=== PATIENT | male | born 1955 | race Caucasian/White ===

== ENCOUNTER 2018-12-14 08:14 | Inpatient (IN) ==
[2018-12-14] MEDS ORDERED: IOPAMIDOL 100 ML BOTTLE IV ONE (08:15)
[2018-12-14] MEDS ORDERED: KETOROLAC 30 MG/ML VIAL IV ONE (09:16)
[2018-12-14] MEDS ORDERED: ONDANSETRON 4 MG/2 ML VIAL IV ONE (09:16)
[2018-12-14] MEDS ORDERED: 0.9 % SODIUM CHLORIDE 2,000 ML IV ONE (09:16)
[2018-12-14] MEDS ORDERED: HYDROmorphone 2 MG/ML VIAL IV PRN (09:16)
--- NOTE | 2018-12-14 09:21 | Emergency Department Note ---
Abdominal Pain HPI - General Chief Complaint: Abdominal Pain Stated Complaint: Abdominal pain Time Seen by Provider: 12/14/18 09:16 Source: patient Mode of arrival: ambulatory Limitations: no limitations - History of Present Illness HPI Narrative: 63-year-old male with epigastric/right upper quadrant/right flank pain started 5-6 days ago. Denies trauma. It became much worse last night so he came in. He did vomit once this morning. Denies fever but has had chills. Still has gallbladder and appendix - Related Data Home Medications Medication Instructions Recorded Confirmed No Known Home Meds 12/14/18 12/14/18 Allergies Allergy/AdvReac Type Severity Reaction Status Date / Time No Known Drug Allergies Allergy Verified 12/14/18 08:18 Review of Systems All systems ED: reviewed and negative except as stated. Abdominal Pain PMH - Past Medical History Attestation: Yes: The following information was validated with the patient. Medical history: Reports: arthritis (Knee), asthma Surgical history ED: Reports: orthopedic, other (Knees), other (Myringotomy) - Social History Smoking status: Current every day smoker Alcohol use: Reports: Heavy Physical Exam No acute distress resting laying flat. Normocephalic atraumatic. Conjunctive are clear sclerae nonicteric. No nasal discharge but occasional sniffle of congestion. Oropharynx pink and moist. Posterior pharynx clear. Neck is supple without lymphadenopathy or thyromegaly. No carotid bruit. heart is regular rate and rhythm no murmur appreciated. Lungs clear to auscultation bilaterally without rales or significant rhonchi but he does have end expiratory wheeze throughout all lung tello. He is moving air well however. Abdomen is soft tender from the epigastrium to the right upper quadrant and over to the right flank. I do not see any distention no history of peritoneal signs or guarding. No pedal edema. +2 radial pulse. Alert oriented Limitations: no limitations Course Vital Signs Temperature 97.9 F 12/14/18 08:14 Pulse Rate 94 H 12/14/18 08:14 Respiratory Rate 20 12/14/18 08:14 Blood Pressure 147/96 12/14/18 08:14 Pulse Oximetry (%) 99 12/14/18 08:14 Temperature 97.9 F 12/14/18 08:14 Pulse Rate 86 12/14/18 11:56 Respiratory Rate 20 12/14/18 08:14 Blood Pressure 133/84 12/14/18 11:45 Pulse Oximetry (%) 95 12/14/18 11:56 Abdominal Pain - Lab Data Result diagrams: 12/14/18 08:34 12/14/18 08:34 Lab Results 12/14/18 12/14/18 12/14/18 Range/Units 08:29 08:34 08:34 WBC 22.5 H (4.5-11.0) K/mcL RBC 5.31 (4.50-5.90) M/mcL Hgb 16.2 (13.5-16.5) g/dL Hct 50.2 (41.0-55.0) % MCV 94.6 (80.0-100.0) fL MCH 30.6 (26.0-34.0) pg MCHC 32.3 (31.0-36.0) g/dL RDW 14.9 H (11.5-14.5) % Plt Count 366 (140-440) K/mcL MPV 8.5 (7.4-10.4) fL Gran % 84.3 H (38.0-78.0) % Lymph % (Auto) 6.5 L (15.5-49.0) % [place] % (Auto) 8.8 (1.0-12.0) % Eos % (Auto) 0.2 (0.0-7.0) % Baso % (Auto) 0.2 (0.0-2.0) % Gran # 18.9 H (1.8-8.0) K/mcL Lymph # (Auto) 1.5 (1.5-4.8) K/mcL [place] # (Auto) 2.0 H (0.1-0.9) K/mcL Eos # (Auto) 0.1 (0.0-0.7) K/mcL Baso # (Auto) 0 (0.0-0.3) K/mcL VBG Lactic Acid (0.5-2.0) mmol/L Sodium 137 (133-145) mmol/L Potassium 3.8 (3.3-5.1) mmol/L Chloride 94 L (96-108) mmol/L Carbon Dioxide 25 (22-30) mmol/L Anion Gap 18.0 H (8-16) BUN 14 (8-23) mg/dl Creatinine 1.4 H (0.7-1.2) mg/dl GFR Calculation 53 Glucose 124 H (70-105) mg/dL Calcium 9.5 (8.6-10.4) mg/dl Total Bilirubin 1.2 H (0.0-1.0) mg/dL AST 17 (0-37) U/l ALT 10 (0-40) U/l Alkaline Phosphatase 170 H (39-117) U/L Total Protein 8.4 (5.9-8.4) gm/dL Albumin 3.9 (3.2-5.2) gm/dL Globulin 4.5 H (2.2-3.7) gm/dL Albumin/Globulin Ratio 0.9 L (1.0-2.3) Amylase (28-100) U/L Lipase (7-60) U/L Urine Color Yellow Urine Appearance Clear Urine pH 5.0 (5.0-9.0) Ur Specific [place] 1.027 (1.000-1.035) Urine Protein >=500 A (NEG) mg/dL Urine Glucose (UA) Negative (NEG) mg/dL Urine Ketones 80 A (NEG) mg/dL Urine Occult Blood >=1.0 A (<0.03) mg/dL Urine Nitrate Neg (NEG) Urine Bilirubin Neg (NEG) mg/dL Urine Urobilinogen 2.0 A (NEG) mg/dL Ur Leukocyte Esterase Neg (NEG) /uL Urine RBC 15 H (0-1) /hpf Urine WBC < 1 (0-4) /hpf Ur Squamous Epith Cells < 1 (0-4) /hpf Urine Bacteria 0 (0) /hpf Hyaline Casts 3 H (0-2) /lpf Urine Mucus Many A (0) /hpf Urine Yeast (Budding) Few A (0) /hpf Ur Culture Indicated? Yes 12/14/18 12/14/18 Range/Units 09:20 09:44 WBC (4.5-11.0) K/mcL RBC (4.50-5.90) M/mcL Hgb (13.5-16.5) g/dL Hct (41.0-55.0) % MCV (80.0-100.0) fL MCH (26.0-34.0) pg MCHC (31.0-36.0) g/dL RDW (11.5-14.5) % Plt Count (140-440) K/mcL MPV (7.4-10.4) fL Gran % (38.0-78.0) % Lymph % (Auto) (15.5-49.0) % [place] % (Auto) (1.0-12.0) % Eos % (Auto) (0.0-7.0) % Baso % (Auto) (0.0-2.0) % Gran # (1.8-8.0) K/mcL Lymph # (Auto) (1.5-4.8) K/mcL [place] # (Auto) (0.1-0.9) K/mcL Eos # (Auto) (0.0-0.7) K/mcL Baso # (Auto) (0.0-0.3) K/mcL VBG Lactic Acid 2.5 H (0.5-2.0) mmol/L Sodium (133-145) mmol/L Potassium (3.3-5.1) mmol/L Chloride (96-108) mmol/L Carbon Dioxide (22-30) mmol/L Anion Gap (8-16) BUN (8-23) mg/dl Creatinine (0.7-1.2) mg/dl GFR Calculation Glucose (70-105) mg/dL Calcium (8.6-10.4) mg/dl Total Bilirubin (0.0-1.0) mg/dL AST (0-37) U/l ALT (0-40) U/l Alkaline Phosphatase (39-117) U/L Total Protein (5.9-8.4) gm/dL Albumin (3.2-5.2) gm/dL Globulin (2.2-3.7) gm/dL Albumin/Globulin Ratio (1.0-2.3) Amylase 37 (28-100) U/L Lipase 15 (7-60) U/L Urine Color Urine Appearance Urine pH (5.0-9.0) Ur Specific [place] (1.000-1.035) Urine Protein (NEG) mg/dL Urine Glucose (UA) (NEG) mg/dL Urine Ketones (NEG) mg/dL Urine Occult Blood (<0.03) mg/dL Urine Nitrate (NEG) Urine Bilirubin (NEG) mg/dL Urine Urobilinogen (NEG) mg/dL Ur Leukocyte Esterase (NEG) /uL Urine RBC (0-1) /hpf Urine WBC (0-4) /hpf Ur Squamous Epith Cells (0-4) /hpf Urine Bacteria (0) /hpf Hyaline Casts (0-2) /lpf Urine Mucus (0) /hpf Urine Yeast (Budding) (0) /hpf Ur Culture Indicated? - Radiology Data Radiology results reviewed: Yes I reviewed the patient's radiology results. CT scan the abdomen pelvis shows wall thickening of the gallbladder and duodenal inflammation per Dr. Hawthorne's report Ultrasound gallbladder pulmonary report showed thickened gallbladder wall with sludge-cholecystitis without lithiasis Disposition Pt seen by MOTORSPOR[employer] TECHNICIAN/PA only: No Clinical Impression: Nery cystitis, Cholecystitis, Duodenitis, Acute kidney injury, Dehydration COPD (chronic obstructive pulmonary disease) Qualifiers: COPD type: unspecified COPD Qualified Code(s): J44.9 - Chronic obstructive pulmonary disease, unspecified UTI (urinary tract infection) Qualifiers: Urinary tract infection type: acute cystitis Hematuria presence: with hematuria Qualified Code(s): N30.01 - Acute cystitis with hematuria Summary: Patient is seen and evaluated test and studies ordered. Pain is treated with Dilaudid and Toradol. Zofran given along with IV fluid. Start DuoNeb for mild COPD Laboratory shows urinary tract infection with yeast. Start Rocephin and f luconazole. Leukocytosis noted so we will get blood cultures as well CT scan shows likely cholecystitis so ultrasound was ordered. Question of duodenitis so Protonix started Ultrasound confirms cholecystitis without lithiasis. Discussed case with Dr. Raji Sutton who agreed to admit the patient. I will write holding orders. Gallbladder removal planned for tomorrow morning Disposition: Xfer As Inpt ([facility]) Condition: Fair
[2018-12-14] MEDS ORDERED: IPRATROPIUM/ALBUTEROL 3 ML AMPUL.NEB NEB ONE (09:24)
[2018-12-14 09:41] LABS: Basophils # (Auto) 0 K/mcL (0.0-0.3); Basophils % (Auto) 0.2 % (0.0-2.0); Eosinophils # (Auto) 0.1 K/mcL (0.0-0.7); Eosinophils % (Auto) 0.2 % (0.0-7.0); Granulocytes % (Auto) 84.3 % (38.0-78.0); Lymphocytes # (Auto) 1.5 K/mcL (1.5-4.8); Lymphocytes % (Auto) 6.5 % (15.5-49.0); Mean Cell Volume 94.6 fL (80.0-100.0); Mean Corpuscular HGB Conc 32.3 g/dL (31.0-36.0); Monocytes % (Auto) 8.8 % (1.0-12.0); Platelet Count 366 K/mcL (140-440); RBC 5.31 M/mcL (4.50-5.90); Red Cell Distribution Width 14.9 % (11.5-14.5)
[2018-12-14 09:48] LABS: Appearance,Urine CLEAR; Bacteria,Urine 0 /hpf (0); Bilirubin,Urine NEG (NEG); Color,Urine YELLOW; Glucose,Urine (UA) NEGATIVE (NEG); Leukocyte Esterase,Urine NEG /uL (NEG); Mucus,Urine MANY /hpf (0); Protein,Urine >=500 mg/dL (NEG); Specific Gravity,Urine 1.027 (1.000-1.035); Urine Blood >=1.0 mg/dL (<0.03); Urine Budding Yeast FEW /hpf (0); Urine Hyaline Cast 3 /lpf (0-2); Urine RBC 15 /hpf (0-1); Urine Squamous Epithelial Cell < 1 /hpf (0-4); Urine WBC < 1 /hpf (0-4)
[2018-12-14 10:05] LABS: Amylase 37 U/L (28-100); Lipase 15 U/L (7-60)
[2018-12-14 10:09] LABS: ALT/SGPT 10 U/l (0-40); Albumin 3.9 gm/dL (3.2-5.2); Albumin/Globulin Ratio 0.9 (1.0-2.3); Alkaline Phosphatase 170 U/L (39-117); Blood Urea Nitrogen 14 mg/dl (8-23)
[2018-12-14] MEDS ORDERED: FLUCONAZOLE 150 MG TABLET PO ONE (10:54)
[2018-12-14] MEDS ORDERED: cefTRIAXone 1 GM VIAL IV ONE (10:54)
[2018-12-14] MEDS ORDERED: PANTOPRAZOLE 40 MG VIAL IV ONE (10:55)
[2018-12-14] MEDS ORDERED: ONDANSETRON 4 MG/2 ML VIAL IV PRN ×2 (12:29→16:02)
--- NOTE | 2018-12-14 13:52 | Cat Scan Report ---
CLINICAL INFORMATION: Right upper quadrant pain, right flank pain and fever COMPARISON: None. TECHNIQUE: Following oral contrast and the injection of intravenous contrast the patient was scanned during the portal venous phase from the diaphragm through the symphysis pubis. Delayed excretory phase images of the upper abdomen were acquired. Sagittal and coronal reformats were created.. The radiation exposure was limited using dose reduction technology. FINDINGS: There is mild atelectasis or inflammation in the posterior basal segments of both lower lobes, right worse than left. The liver is normal in size and homogeneous. There is prominence of the portal triads. The gallbladder wall is thickened and there is inflammation in the surrounding fat. The wall is asymmetrically thickened along the medial side. No calcified stones are seen within the lumen. The inflammation extends to the lateral wall of the duodenal bulb. The wall of the duodenum does not appear abnormally thickened. There is no extravasation of oral contrast at this site. The extrahepatic bile ducts are normal in caliber and there is no evidence of a stone in the duct. The pancreas is normal in size and homogeneous. The adrenals are normal and symmetric. There are multiple simple cysts in both kidneys. The largest is exophytic and located posteriorly in the left kidney. It measures 4.5 x 5.6 cm. There is mild parenchymal scarring laterally in the midportion of the right kidney. No kidney stone or hydronephrosis are present on either side. There is mild stranding of the fat surrounding both kidneys. The ureters are decompressed. The oral contrast has passed through stomach and normal small bowel into the ileum without obstruction. Small bowel is noninflamed. The appendix is noninflamed. There are a couple noninflamed diverticula in the ascending and sigmoid colon. Patient has moderate atherosclerotic disease in the aorta and iliac arteries. A small fusiform aneurysm is present in the mid to distal abdominal aorta. It measures 2.7 x 2.9 cm. There is severe degenerative disc disease and arthritis at L5-S1, T10-T11 and T11-12 and T12-L1 with moderate disc space narrowing at L4-5. IMPRESSION: Inflammation in the wall of the gallbladder extending to the lateral wall of the duodenal bulb. There is also inflammation in the portal triads and jordan hepatis. This may be due to cholangitis and cholecystitis. 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
--- NOTE | 2018-12-14 14:01 | Ultrasound Report ---
History: Worsening right upper quadrant pain with nausea, vomiting and thickened gallbladder wall seen on the preceding CT scan. FINDINGS: The liver is normal in size. There may be focal areas of mild fatty infiltration. No mass is present within the liver. Doppler shows normal blood flow in the hepatic and portal veins. The gallbladder wall is markedly thickened, irregular and appears inflamed. It Measures up to 7.5 mm. There is sludge within the lumen. No calcified stones are present. The patient was nontender while scanning over the gallbladder. However, the patient had been medicated prior to the ultrasound. The proximal common bile duct is 5.2 mm. Distal portion is obscured by bowel gas. No ascites mass or abscess are present in the right upper quadrant. Limited views of the right kidney show no abnormality. IMPRESSION: Thickened gallbladder wall which is much more likely due to cholecystitis rather than a malignancy. Interpreted and Authenticated by: Jonathan Hawthorne 12/14/18
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
[2018-12-14] MEDS ORDERED: oxyCODONE HCL 5 MG TABLET PO PRN (16:02)
[2018-12-14] MEDS ORDERED: ACETAMINOPHEN 325 MG TABLET PO PRN (16:02)
[2018-12-14] MEDS: LACTATED RINGERS 1,000 ML IV SCH (16:06)
[2018-12-14] MEDS: 0.9 % SODIUM CHLORIDE 1,000 ML IV SCH (18:05)
[2018-12-14] MEDS: PIPERACILLIN SODIUM/TAZOBACTAM 3.375 GM in DEXTROSE 5% IN WATER 50 ML IV SCH (19:39)
[2018-12-15] MEDS: HYDROmorphone 2 MG/ML VIAL IV PRN ×2 (00:07→07:39)
[2018-12-15] MEDS: PIPERACILLIN SODIUM/TAZOBACTAM 3.375 GM in DEXTROSE 5% IN WATER 50 ML IV SCH ×5 (00:10→23:08)
[2018-12-15] MEDS: 0.9 % SODIUM CHLORIDE 1,000 ML IV SCH ×5 (00:10→16:45)
[2018-12-15] MEDS: IPRATROPIUM/ALBUTEROL 3 ML AMPUL.NEB NEB PRN ×2 (00:22→06:26)
[2018-12-15] MEDS: LACTATED RINGERS 1,000 ML IV SCH (01:09)
[2018-12-15 05:55] LABS: Basophils # (Auto) 0.1 K/mcL (0.0-0.3); Basophils % (Auto) 0.3 % (0.0-2.0); Eosinophils # (Auto) 0.5 K/mcL (0.0-0.7); Eosinophils % (Auto) 2.7 % (0.0-7.0); Granulocytes % (Auto) 80.6 % (38.0-78.0); Lymphocytes # (Auto) 1.3 K/mcL (1.5-4.8); Lymphocytes % (Auto) 7.1 % (15.5-49.0); Mean Cell Volume 95.4 fL (80.0-100.0); Mean Corpuscular HGB Conc 32.5 g/dL (31.0-36.0); Monocytes # (Auto) 1.7 K/mcL (0.1-0.9); Monocytes % (Auto) 9.3 % (1.0-12.0); Platelet Count 281 K/mcL (140-440); RBC 4.55 M/mcL (4.50-5.90); Red Cell Distribution Width 14.9 % (11.5-14.5)
[2018-12-15] MEDS: PANTOPRAZOLE 40 MG VIAL IV SCH ×3 (06:28→16:59)
[2018-12-15 07:02] LABS: ALT/SGPT 19 U/l (0-40); Albumin 2.9 gm/dL (3.2-5.2); Albumin/Globulin Ratio 0.8 (1.0-2.3); Alkaline Phosphatase 162 U/L (39-117); Bilirubin,Direct 0.6 mg/dL (0.0-0.3); Blood Urea Nitrogen 13 mg/dl (8-23); Gamma Glutamyl Transpeptidase 51 U/L (8-61); Uric Acid 5.6 mg/dL (2.5-8.0)
[2018-12-15] MEDS ORDERED: NEOSTIGMINE 1 MG/ML VIAL IV ONE (13:50)
[2018-12-15] MEDS ORDERED: BUPRENORPHINE HCL 0.3 MG/ML ML IM ONE (13:50)
[2018-12-15] MEDS ORDERED: ONDANSETRON 4 MG/2 ML VIAL IV ONE (13:50)
[2018-12-15] MEDS ORDERED: MIDAZOLAM 5 MG/5 ML VIAL IV ONE (13:50)
[2018-12-15] MEDS ORDERED: GLYCOPYRROLATE 0.2 MG/ML VIAL IV ONE (13:50)
[2018-12-15] MEDS ORDERED: fentaNYL 250 MCG/5 ML VIAL IV ONE (13:50)
[2018-12-15] MEDS ORDERED: ROCURONIUM 10 MG/ML ML IV ONE (13:50)
[2018-12-15] MEDS ORDERED: PROPOFOL 200 MG/20 ML VIAL IV ONE (13:50)
[2018-12-15] MEDS ORDERED: DEXAMETHASONE 10 MG/ML VIAL IV ONE (13:50)
[2018-12-15] MEDS ORDERED: KETAMINE 100 MG/ML ML IV ONE (13:50)
[2018-12-15] MEDS ORDERED: HYDROmorphone 2 MG/ML VIAL IV ONE (13:50)
[2018-12-15] MEDS ORDERED: LIDOCAINE HCL/PF 100 MG/5 ML SYRINGE IV ONE (13:50)
[2018-12-15] MEDS ORDERED: PHENYLEPHRINE 10 MG/ML VIAL IV ONE (13:50)
[2018-12-15] MEDS ORDERED: PROMETHAZINE 25 MG/ML VIAL IV PRN (14:34)
[2018-12-15] MEDS ORDERED: diphenhydrAMINE 50 MG/ML VIAL IV PRN (14:34)
[2018-12-15] MEDS ORDERED: BENZOCAINE/MENTHOL 1 LOZENGE PO PRN (14:34)
[2018-12-15] MEDS ORDERED: KETOROLAC 15 MG/ML VIAL IV PRN (14:34)
[2018-12-15] MEDS ORDERED: FLUMAZENIL 0.1 MG/ML ML IV PRN (14:34)
[2018-12-15] MEDS ORDERED: MEPERIDINE 25 MG/ML SYRINGE IV PRN ×2 (14:34→16:34)
[2018-12-15] MEDS ORDERED: ACETAMINOPHEN 1,000 MG/100 ML BOTTLE IV ONE (14:34)
[2018-12-15] MEDS ORDERED: IPRATROPIUM/ALBUTEROL 3 ML AMPUL.NEB NEB PRN ×2 (14:34→16:34)
[2018-12-15] MEDS ORDERED: fentaNYL 100 MCG/2 ML VIAL IV PRN (14:34)
[2018-12-15] MEDS ORDERED: LACTATED RINGERS 250 ML IV PRN (14:34)
[2018-12-15] MEDS ORDERED: ONDANSETRON 4 MG/2 ML VIAL IV PRN ×2 (14:34→16:34)
[2018-12-15] MEDS ORDERED: NALOXONE HCL 0.4 MG/ML VIAL IV PRN (14:34)
[2018-12-15] MEDS ORDERED: LACTATED RINGERS 1,000 ML IV SCH ×2 (14:45→16:34)
--- NOTE | 2018-12-15 15:16 | Brief Operative Note ---
Date of procedure: 12/15/18 Pre-op diagnosis: acute cholecystitis Post-op diagnosis: other (acute gangrenous cholecystectomy) Procedure: laparoscopic cholecystectomy Grafts/Implants: No (jpx1) Anesthesia: GETA Findings: severe acute gangrenous cholecystitis Complications: none Surgeon: Kira Sutton Estimated blood loss (cc): 25 Specimens Removed/Pathology: other (gallbladder) Condition: stable Disposition: PACU
[2018-12-15] MEDS ORDERED: HYDROmorphone 2 MG/ML VIAL IV PRN (16:34)
[2018-12-15] MEDS ORDERED: ACETAMINOPHEN 325 MG TABLET PO PRN (16:34)
[2018-12-16] MEDS: 0.9 % SODIUM CHLORIDE 1,000 ML IV SCH ×3 (03:25→22:01)
[2018-12-16] MEDS: PIPERACILLIN SODIUM/TAZOBACTAM 3.375 GM in DEXTROSE 5% IN WATER 50 ML IV SCH ×4 (05:02→23:13)
[2018-12-16] MEDS: oxyCODONE HCL 5 MG TABLET PO PRN ×3 (05:07→23:16)
[2018-12-16 06:22] LABS: Basophils # (Auto) 0 K/mcL (0.0-0.3); Basophils % (Auto) 0 % (0.0-2.0); Eosinophils # (Auto) 0 K/mcL (0.0-0.7); Eosinophils % (Auto) 0 % (0.0-7.0); Lymphocytes # (Auto) 0.8 K/mcL (1.5-4.8); Lymphocytes % (Auto) 5.8 % (15.5-49.0); Mean Cell Volume 95.9 fL (80.0-100.0); Mean Corpuscular HGB Conc 32.4 g/dL (31.0-36.0); Monocytes # (Auto) 0.4 K/mcL (0.1-0.9); Monocytes % (Auto) 3.2 % (1.0-12.0); Platelet Count 296 K/mcL (140-440); RBC 4.08 M/mcL (4.50-5.90); Red Cell Distribution Width 15.1 % (11.5-14.5)
[2018-12-16 07:09] LABS: ALT/SGPT 26 U/l (0-40); Albumin 2.8 gm/dL (3.2-5.2); Albumin/Globulin Ratio 0.8 (1.0-2.3); Alkaline Phosphatase 155 U/L (39-117); Bilirubin,Direct 0.5 mg/dL (0.0-0.3); Blood Urea Nitrogen 14 mg/dl (8-23); Gamma Glutamyl Transpeptidase 48 U/L (8-61)
[2018-12-16] MEDS: PANTOPRAZOLE 40 MG VIAL IV SCH ×2 (07:32→16:05)
[2018-12-16] MEDS ORDERED: PNEUMOCOCCAL 23-VAL P-SAC VAC 0.5 ML SYRINGE IM ONE (10:00)
--- NOTE | 2018-12-16 11:47 | General Surgery Progress Note ---
Subjective Patient reports: feels better, still having pain, pain is less, tolerating liquids well, flatus, no bowel movement, afebrile Narrative: Note initiated : 12/16/18 at 11:46 am Service Date, if different from initiated Date: [] Patient: Rhys Gomez 63 y/o M admitted on 12/14/18 for Abdominal pain. Chief Complaint: [patient states that he feels better. He has pain but it is his operative discomfort and he feels less pain than he did preoperatively. He has been afebrile. White blood count is 13.5 hemoglobin 12.7, LFTs are normal. He denies nausea and is tolerating clear liquids without difficulty. Discussed with the patient the operative findings and advised him that I would like to keep him another 24 hours for IV antibiotics prior to discharge because of the extensive infection that he Had.] Objective Temp Pulse Resp BP Pulse Ox 98.3 F 80 18 123/73 92 12/16/18 11:15 12/16/18 11:15 12/16/18 11:15 12/16/18 11:15 12/16/18 11:15 - Additional Data Intake & Output - Last 24 hours: Intake & Output 12/14/18 12/15/18 12/16/18 12/17/18 05:59 05:59 05:59 05:59 Intake Total 2304 4950 1840 Output Total 795 500 Balance 2304 4155 1340 Weight 207 lb 9.6 oz 201 lb 8 oz - General physical appearance well developed, well nourished, no distress - Eyes PERRL, normal ocular movement - ENT normal pinna, normal nares, normal mucosa, no hearing loss, no congestion - Neck no masses, no bruits, trachea midline, no lymphadenopathy, no venous distension - Respiratory normal expansion, normal respiratory effort, clear to auscultation - Cardiovascular Cardiovascular exam: Present: RRR, +S1, +S2. Absent: JVD, tachycardia - Abdomen tender (moderate incisional tenderness; good active bowel sounds; JOSE drainage is bloody) - Integumentary no rash, no growths, no abnormal pigmentation - Neurologic normal coordination, normal sensation - Musculoskeletal normal gait, normal posture - Psychiatric oriented to time, oriented to person, oriented to place, speech is normal, memory intact - Labs 12/16/18 04:26 12/16/18 04:26 Diabetes panel 12/16/18 Range/Units 04:26 Sodium 137 (133-145) mmol/L Potassium 4.2 (3.3-5.1) mmol/L Chloride 102 (96-108) mmol/L Carbon Dioxide 26 (22-30) mmol/L BUN 14 (8-23) mg/dl Creatinine 1.2 (0.7-1.2) mg/dl Glucose 123 H (70-105) mg/dL Calcium 8.2 L (8.6-10.4) mg/dl AST 32 (0-37) U/l ALT 26 (0-40) U/l Alkaline Phosphatase 155 H (39-117) U/L Total Protein 6.5 (5.9-8.4) gm/dL Albumin 2.8 L (3.2-5.2) gm/dL Triglycerides 82 (<150) mg/dl Calcium panel 12/16/18 Range/Units 04:26 Calcium 8.2 L (8.6-10.4) mg/dl Phosphorus 2.9 (2.7-4.5) mg/dL Albumin 2.8 L (3.2-5.2) gm/dL Pituitary panel 12/16/18 Range/Units 04:26 Sodium 137 (133-145) mmol/L Potassium 4.2 (3.3-5.1) mmol/L Chloride 102 (96-108) mmol/L Carbon Dioxide 26 (22-30) mmol/L BUN 14 (8-23) mg/dl Creatinine 1.2 (0.7-1.2) mg/dl Glucose 123 H (70-105) mg/dL Calcium 8.2 L (8.6-10.4) mg/dl Adrenal panel 12/16/18 Range/Units 04:26 Sodium 137 (133-145) mmol/L Potassium 4.2 (3.3-5.1) mmol/L Chloride 102 (96-108) mmol/L Carbon Dioxide 26 (22-30) mmol/L BUN 14 (8-23) mg/dl Creatinine 1.2 (0.7-1.2) mg/dl Glucose 123 H (70-105) mg/dL Calcium 8.2 L (8.6-10.4) mg/dl Total Bilirubin 0.8 (0.0-1.0) mg/dL AST 32 (0-37) U/l ALT 26 (0-40) U/l Alkaline Phosphatase 155 H (39-117) U/L Total Protein 6.5 (5.9-8.4) gm/dL Albumin 2.8 L (3.2-5.2) gm/dL Assessment and Plan (1) Acute cholecystitis without calculus Status: Acute Assessment and plan: Patient is clinically improved; we'll delay discharge another 24 hours for IV antibiotics and check white blood count tomorrow. Diet advance to low-fat diet Current Visit: Yes (2) COPD (chronic obstructive pulmonary disease) Status: Acute Current Visit: Yes (3) UTI (urinary tract infection) Status: Acute Current Visit: Yes - Time Spent With Patient Total time spent is greater than 50% in coordination of care (as documented) at patient's floor/unit and/or counseling patient:
--- NOTE | 2018-12-16 16:10 | Operative Note ---
DATE OF OPERATION: 12/15/2018 PREOPERATIVE DIAGNOSIS: Acute cholecystitis. POSTOPERATIVE DIAGNOSIS: Acute gangrenous cholecystitis. PROCEDURE: Laparoscopic cholecystectomy. SURGEON: Kira Sutton M.D. FINDINGS: Severe acute gangrenous cholecystitis with necrosis of the posterior wall of the gallbladder. DESCRIPTION OF PROCEDURE: Under general anesthesia, the patient's abdomen was prepped and draped in a sterile field. Supraumbilical midline incision was made and Veress needle was inserted uneventfully. Abdomen was insufflated with 3 liters of CO2. A 12 mm port was placed. The gallbladder was tightly encased in inflamed omentum. Under videoscopic guidance, a 12 mm port and two 5 mm ports were placed in the right subcostal region. Using blunt dissection, the omentum was from the medial wall of the gallbladder until the wall could be found. Once this was done, then electrocautery was used to dissect the omentum from the gallbladder and the liver. The gallbladder appeared to be severely inflamed with areas of black necrosis in the infundibulum. The area of the duct and vessels was severely inflamed. In order to get better visualization, a 12 mm port was placed in the left upper quadrant, and a fan retractor was placed through this port. The fan retractor was used to compress the colon and the omentum downward and medially so that I could get a better view of the infundibulum. The cystic artery was isolated initially. It was bluntly dissected and followed onto the wall of the gallbladder. It was then clipped with four clips and divided. The cystic duct was bluntly dissected because of the severe inflammation. It was followed initially to the junction with the gallbladder and then distally until I could see its junction with the common duct. Once this was done, the cystic duct was transected at its junction with the gallbladder using the MARIKA stapler. The infundibulum was then grasped and using primarily blunt dissection, the gallbladder was from the hepatic bed. The posterior wall of the gallbladder was necrotic and friable and black. Some of the wall of the posterior aspect of the gallbladder was left in situ because of the necrosis. Once the gallbladder was , it was placed in an Endopouch and retrieved. Irrigation was carried out. Hemostasis was achieved with electrocautery. A 10 flat JOSE drain was placed and brought out through the most lateral port site. CO2 was allowed to escape from the abdomen and the ports were removed. Fascia at the umbilicus was closed with interrupted 0 Vicryl. Skin incisions were closed with anne marie. Drain was secured with 2-0 nylon. The patient tolerated the procedure well. He was awakened, transferred to a bed, and taken to the postanesthetic care unit in stable, satisfactory condition. LCS:shira Job ID: [id number] Doc ID: [id number] Kira Sutton M.D.
[2018-12-17] MEDS: 0.9 % SODIUM CHLORIDE 1,000 ML IV SCH (01:49)
[2018-12-17] MEDS: PIPERACILLIN SODIUM/TAZOBACTAM 3.375 GM in DEXTROSE 5% IN WATER 50 ML IV SCH ×2 (04:23→11:35)
[2018-12-17] MEDS: oxyCODONE HCL 5 MG TABLET PO PRN (04:25)
[2018-12-17] MEDS: PANTOPRAZOLE 40 MG VIAL IV SCH (07:42)
[2018-12-17 08:59] LABS: Basophils # (Auto) 0 K/mcL (0.0-0.3); Basophils % (Auto) 0.2 % (0.0-2.0); Eosinophils # (Auto) 0.1 K/mcL (0.0-0.7); Eosinophils % (Auto) 0.5 % (0.0-7.0); Granulocytes % (Auto) 76.2 % (38.0-78.0); Lymphocytes # (Auto) 1.9 K/mcL (1.5-4.8); Lymphocytes % (Auto) 16.1 % (15.5-49.0); Mean Cell Volume 96.2 fL (80.0-100.0); Mean Corpuscular HGB Conc 32.7 g/dL (31.0-36.0); Monocytes # (Auto) 0.8 K/mcL (0.1-0.9); Platelet Count 373 K/mcL (140-440); RBC 3.65 M/mcL (4.50-5.90); Red Cell Distribution Width 15.3 % (11.5-14.5)
[2018-12-17 09:15] LABS: ALT/SGPT 25 U/l (0-40); Albumin 2.6 gm/dL (3.2-5.2); Albumin/Globulin Ratio 0.8 (1.0-2.3); Alkaline Phosphatase 147 U/L (39-117); Bilirubin,Direct < 0.2 mg/dL (0.0-0.3); Blood Urea Nitrogen 16 mg/dl (8-23); Gamma Glutamyl Transpeptidase 42 U/L (8-61); Uric Acid 4.5 mg/dL (2.5-8.0)
[2018-12-17] MEDS ORDERED: NEUTRA PHOS 1 PACKET PO ONE (10:11)
--- NOTE | 2018-12-17 12:16 | Discharge Summary ---
Providers - Providers Patient information: Note initiated : 12/17/18 at 12:14 pm Service Date, if different from initiated Date: [] Patient: Rhys Gomez 63 y/o M admitted on 12/14/18 for Abdominal pain. Chief Complaint: [] Date of admission: 12/14/18 Discharge date: 12/17/18 Attending physician: Kira Sutton Hospitalization Hospital course: 63-year-old male admitted on 13 November with acute cholecystitis. He underwent laparoscopic cholecystectomy on 14 November with findings of acute gangrenous cholecystitis. His white blood count was still elevated significantly on yesterday so he was continued on antibiotics. He is doing well at this time. He has been afebrile. He has tolerated diet without difficulty. LFTs are normal. White blood count is 11.7. BUN and creatinine are unremarkable. Patient is stable for discharge home. Discharge diagnosis: acute cholecystitis with cholelithiasis Secondary discharge diagnosis: Chronic obstructive lung disease Reason for admission: acute abdominal pain with nausea and vomiting Procedures: Laparoscopic cholecystectomy Pertinent studies/significant findings: CT of abdomen and pelvis with contrast Upper abdominal ultrasound Complications: None Exam Temp Pulse Resp BP Pulse Ox 97.6 F 82 16 142/86 92 12/17/18 07:34 12/17/18 08:00 12/17/18 07:34 12/17/18 07:34 12/17/18 08:00 - General physical appearance well developed, well nourished, no distress - Eyes PERRL, normal ocular movement - ENT normal pinna, normal nares, normal mucosa, no congestion, decreased hearing - Head Head exam IM: Present: atraumatic, normocephalic - Neck no masses, no bruits, trachea midline, no lymphadenopathy, no venous distension - Cardiovascular Cardiovascular exam IM: Present: normal rate and rhythm, RRR, +S1, +S2. Absent: irregular rhythm, JVD, tachycardia - Respiratory normal expansion, normal respiratory effort, clear to auscultation - Abdomen Abdomen: Present: soft, tender (mild incisional tenderness; active bowel sounds; bloody drainage in JOSE), bowel sounds Hernia: Present: none - Genitourinary Present: normal penis with no external lesions - Integumentary Present: no rash, no growths, no abnormal pigmentation - Neurologic Present: normal coordination, normal sensation - Musculoskeletal Present: normal gait, normal posture - Psychiatric Present: oriented to time, oriented to person, oriented to place, speech is normal, memory intact Discharge Plan - Patient/Caregiver Discharge Instructions Activity: increase activity as tolerated Diet: Low Fat Additional Instructions: empty the Prashanth-Parr canister once or twice daily Office visit in 2 weeks Acetaminophen( Tylenol) 2 tablets 4 times daily as needed for pain Prescriptions: Ciprofloxacin [Cipro] 500 mg PO BID #14 tablet - Follow up Plan Disposition: Home, Self-Care Prognosis: Good Rehab Potential: Good I certify that the patient requires SNF services.: No Overall status at discharge: patient is progressing back to baseline (26 weeks) Pending Studies Resuscitation Status Full Code Diet Low Fat Diet Start SatDec 16 937 Piperacillin Sod/Tazobactam (Sod 3.375 gm/ Dextrose) 50 mls @ 100 mls/hr IV Q6H IRENA Last Admin: 12/17/18 11:35 Dose: 100 mls/hr Documented by: Infusion: 12/17/18 05:00 Dose: 0 mls/hr Documented by: Admin: 12/17/18 04:23 Dose: 100 mls/hr Documented by: Infusion: 12/16/18 23:43 Dose: 100 mls/hr Documented by: Admin: 12/16/18 23:13 Dose: 100 mls/hr Documented by: Infusion: 12/16/18 17:45 Dose: 0 mls/hr Documented by: Admin: 12/16/18 16:59 Dose: 100 mls/hr Documented by: Infusion: 12/16/18 13:54 Dose: 0 mls/hr Documented by: Admin: 12/16/18 11:13 Dose: 100 mls/hr Documented by: Infusion: 12/16/18 05:32 Dose: 0 mls/hr Documented by: Admin: 12/16/18 05:02 Dose: 100 mls/hr Documented by: Infusion: 12/15/18 23:38 Dose: 100 mls/hr Documented by: Admin: 12/15/18 23:08 Dose: 100 mls/hr Documented by: Infusion: 12/15/18 18:38 Dose: 0 mls/hr Documented by: Admin: 12/15/18 16:59 Dose: 100 mls/hr Documented by: [email or web address] Oxycodone HCl (Roxicodone) 10 mg PO Q4HP PRN PRN Reason: PAIN LEVEL 3-6 Last Admin: 12/17/18 04:25 Dose: 10 mg Documented by: Admin: 12/16/18 23:16 Dose: 10 mg Documented by: Admin: 12/16/18 13:53 Dose: 10 mg Documented by: Admin: 12/16/18 05:07 Dose: 10 mg Documented by: EDWARDOSSERT Pantoprazole Sodium (Protonix) 40 mg IV BIDAC IRENA Last Admin: 12/17/18 07:42 Dose: 40 mg Documented by: Admin: 12/16/18 16:05 Dose: 40 mg Documented by: Admin: 12/16/18 07:32 Dose: 40 mg Documented by: Admin: 12/15/18 16:59 Dose: 40 mg Documented by: LIANA Shift Summary 12/17/18 00:17 Shift Summary by Mary Segura Addendum entered by Mary Segura RPatricia 12/17/18 04:27: PRN oxycodone @ 0425 for ABD pain. Original Note: AOx4. VSS on RA. IS bedside. OOB SBA.Tolerating low fat diet. Lap sites x4 with anne marie and tegaderm. JOSE RUQ with bloody output. Gauze with old drainage dressing dry and intact. c/o 4/10 ABD pain. PRN oxycodone x1 with significant relief, last@2316. NS @100ml/HR via 20G R FA. Intermittent zosyn. Voiding without issue. Currently resting in bed without complaint. Initialized on 12/17/18 00:17 - END OF NOTE
--- NOTE | 2018-12-17 12:43 | Surgical Pathology Report ---
HISTOLOGY SPECIMEN MICROSCOPIC DIAGNOSIS GALLBLADDER, CHOLECYSTECTOMY: -- NECROTIZING CHOLECYSTITIS WITH ACUTE/CHRONIC INFLAMMATION AND CHOLELITHIASIS. (RLF:adj) MICROSCOPIC DESCRIPTION Immunohistochemical studies are performed (block A1). Pancytokeratin plus: Highlights a few foci of sketch liner epithelium. CD68, CD34: Positive in inflammatory cells and vessels, respectively. Interpretation: No occult invasive carcinoma identified. Some of the tests reported here may not have been cleared or approved by the [place]. Food and Drug Administration (FDA). However, the FDA has determined that such clearance or approval is not necessary. Pursuant to the requirements of CLIA, this laboratory has established and verified the accuracy and precision of all tests, and additional information about these tests is available upon request. All technical controls are adequate. PROCEDURAL IMPRESSION Cholecystitis. GROSS DESCRIPTION Received in formalin labeled with the patient information, is a 9.6 x 4 x 2 cm pink to red-burnette previously opened gallbladder. The serosal surface is smooth and glistening. There are two metal clips present including one on the cystic duct. There is a 1.7 x 1.3 cm firmer, red-burnette area on the serosal surface. This area is inked black. The mucosa is dark green and velvety. The wall is up to 1 cm thick. There is a 0.3 cm black crystalline stone found within the cystic duct. No additional stones are identified. Digital Media Representative sections submitted in two cassettes. (STS:adj) Electronically Signed by: Camille Montoya M.D.
[2018-12-17] MEDS ORDERED: PNEUMOCOCCAL 23-VAL P-SAC VAC 0.5 ML SYRINGE IM ONE (13:04)
== END 2018-12-17 13:30 | disposition home or self-care (01) | DRG 418 ==
LOC: ED 08:14 → MEDSUR 13:34
PROVIDERS: ADMIT Family Medicine Adult Medicine; ATTEND Family Medicine Adult Medicine

== ENCOUNTER 2024-03-26 09:19 | Observation (INO) ==
[2024-03-26] MEDS: IPRATROPIUM/ALBUTEROL 3 ML AMPUL.NEB NEB ONE ×3 (09:56→20:43)
[2024-03-26] MEDS: methylPREDNISolone SOD SUCC 125 MG/2 ML VIAL IV ONE (09:59)
[2024-03-26 10:06] LABS: Basophils # (Auto) 0.08 K/mcL (0.00-0.30); Basophils % (Auto) 0.9 % (0.0-2.0); Eosinophils # (Auto) 0.33 K/mcL (0.00-0.70); Eosinophils % (Auto) 3.9 % (0.0-7.0); Hematocrit 45.4 % (40.1-51.0); Hemoglobin 14.6 g/dL (13.7-17.5); Lymphocytes # (Auto) 1.78 K/mcL (1.50-4.80); Lymphocytes % (Auto) 21.1 % (15.5-49.0); Mean Cell Volume 98.1 fL (80.0-100.0); Mean Corpuscular HGB Conc 32.2 g/dL (31.0-36.0); Mean Platelet Volume 9.3 fL (8.8-12.5); Monocytes # (Auto) 0.68 K/mcL (0.10-0.90); Monocytes % (Auto) 8.1 % (1.0-12.0); Neutrophils % (Auto) 65.8 % (38.0-78.0); Platelet Count 328 K/mcL (140-440); RBC 4.63 M/mcL (4.63-6.08); WBC 8.4 K/mcL (4.5-11.0)
[2024-03-26 10:14] LABS: ALT/SGPT 39 U/L (<40); AST/SGOT 45 U/L (<40); Albumin 3.9 gm/dL (3.2-5.2); Albumin/Globulin Ratio 1.3 (1.0-2.3); Alkaline Phosphatase 127 U/L (39-117); Bilirubin,Total 0.6 mg/dL (0.1-1.0); Blood Urea Nitrogen 22 mg/dL (8-23); Calcium 9.1 mg/dL (8.6-10.4); Carbon Dioxide 26 mmol/L (22-30); Chloride 97 mmol/L (96-108); Globulin 3.1 gm/dL (2.2-3.7); Glomerular Filtration Rate 40; Glucose 113 mg/dL (70-105)
[2024-03-26] MEDS: FUROSEMIDE 40 MG/4 ML VIAL IV ONE (11:30)
[2024-03-26 11:34] LABS: Prothrombin Time 13.5 sec (11.9-14.5)
[2024-03-26] MEDS ORDERED: ALBUTEROL SULFATE 60 PUFF INHALER INH PRN (16:53)
[2024-03-26] MEDS ORDERED: ONDANSETRON 4 MG/2 ML VIAL IV PRN (18:04)
[2024-03-26] MEDS ORDERED: guaiFENesin/DEXTROMETHORPHAN 5ML UD CUP PO PRN (18:04)
[2024-03-26] MEDS: IPRATROPIUM/ALBUTEROL 3 ML AMPUL.NEB NEB SCH (18:42)
[2024-03-26] MEDS: AZITHROMYCIN 250 MG TABLET PO SCH (20:28)
[2024-03-26] MEDS: traZODone HCL 50 MG TABLET PO PRN (20:29)
[2024-03-26] MEDS: predniSONE 20 MG TABLET PO SCH (20:29)
[2024-03-26] MEDS: DOCUSATE SODIUM 100 MG CAPSULE PO SCH (20:30)
[2024-03-26] MEDS: SENNOSIDES 1 TABLET PO SCH (20:30)
[2024-03-26] MEDS: FUROSEMIDE 40 MG/4 ML VIAL IV SCH (20:38)
[2024-03-26] MEDS: HEPARIN 5,000 UNIT/ML VIAL SQ SCH (20:38)
[2024-03-26] MEDS: 0.9 % SODIUM CHLORIDE 10 ML SYRINGE IV SCH (22:02)
[2024-03-27] MEDS: hydrALAZINE 20 MG/ML VIAL IV PRN (04:27)
[2024-03-27 06:37] LABS: Basophils # (Auto) 0.02 K/mcL (0.00-0.30); Basophils % (Auto) 0.2 % (0.0-2.0); Eosinophils # (Auto) 0 K/mcL (0.00-0.70); Eosinophils % (Auto) 0 % (0.0-7.0); Hematocrit 43.2 % (40.1-51.0); Hemoglobin 14.3 g/dL (13.7-17.5); Lymphocytes % (Auto) 6.6 % (15.5-49.0); Mean Corpuscular HGB Conc 33.1 g/dL (31.0-36.0); Mean Platelet Volume 9.2 fL (8.8-12.5); Monocytes # (Auto) 0.23 K/mcL (0.10-0.90); Monocytes % (Auto) 2.5 % (1.0-12.0); Neutrophils % (Auto) 89.9 % (38.0-78.0); Platelet Count 303 K/mcL (140-440); Red Cell Distribution Width 14.7 % (11.5-14.5); WBC 9.1 K/mcL (4.5-11.0)
[2024-03-27 07:00] LABS: ALT/SGPT 33 U/L (<40); AST/SGOT 29 U/L (<40); Albumin 3.7 gm/dL (3.2-5.2); Albumin/Globulin Ratio 1.4 (1.0-2.3); Alkaline Phosphatase 112 U/L (39-117); Bilirubin,Total 0.5 mg/dL (0.1-1.0); Blood Urea Nitrogen 28 mg/dL (8-23); Calcium 9.3 mg/dL (8.6-10.4); Carbon Dioxide 29 mmol/L (22-30); Chloride 98 mmol/L (96-108); Globulin 2.7 gm/dL (2.2-3.7); Glomerular Filtration Rate 35; Glucose 136 mg/dL (70-105)
[2024-03-27] MEDS: Fluticasone-Umeclidin-Vilanter [Trelegy Ellipta] Inhaler INH SCH (09:11)
[2024-03-27] MEDS: ACETAMINOPHEN 325 MG TABLET PO PRN (18:33)
[2024-03-28 06:55] LABS: Basophils # (Auto) 0.01 K/mcL (0.00-0.30); Basophils % (Auto) 0.1 % (0.0-2.0); Eosinophils # (Auto) 0.01 K/mcL (0.00-0.70); Eosinophils % (Auto) 0.1 % (0.0-7.0); Hematocrit 44.4 % (40.1-51.0); Hemoglobin 14.2 g/dL (13.7-17.5); Lymphocytes # (Auto) 1.34 K/mcL (1.50-4.80); Lymphocytes % (Auto) 10.2 % (15.5-49.0); Mean Cell Volume 98.4 fL (80.0-100.0); Mean Platelet Volume 9.1 fL (8.8-12.5); Monocytes % (Auto) 7.6 % (1.0-12.0); Neutrophils % (Auto) 81.7 % (38.0-78.0); Platelet Count 311 K/mcL (140-440); RBC 4.51 M/mcL (4.63-6.08); Red Cell Distribution Width 15.5 % (11.5-14.5); WBC 13.2 K/mcL (4.5-11.0)
[2024-03-28 07:34] LABS: ALT/SGPT 23 U/L (<40); AST/SGOT 30 U/L (<40); Albumin 3.8 gm/dL (3.2-5.2); Albumin/Globulin Ratio 1.4 (1.0-2.3); Alkaline Phosphatase 101 U/L (39-117); Bilirubin,Total 0.3 mg/dL (0.1-1.0); Blood Urea Nitrogen 39 mg/dL (8-23); Calcium 9.3 mg/dL (8.6-10.4); Carbon Dioxide 29 mmol/L (22-30); Chloride 96 mmol/L (96-108); Globulin 2.8 gm/dL (2.2-3.7); Glomerular Filtration Rate 24; Glucose 109 mg/dL (70-105)
[2024-03-28] MEDS: PNEUMOCOCCAL 23-VAL P-SAC VAC 0.5 ML SYRINGE IM ONE (10:05)
== END 2024-03-28 14:10 | disposition home or self-care (01) ==
LOC: ED 09:19 → MEDSUR 09:19
PROVIDERS: ADMIT Internal Medicine; ATTEND Internal Medicine